=== PATIENT | male | born 1995 | race Caucasian/White ===

== ENCOUNTER 2016-10-25 20:17 | Emergency (ER) | payer OTHER ==
--- NOTE | 2016-10-25 21:52 | ED ORDER SUMMARY ---
..... Patient: TE WEI OrderSheet [facility] VisitID: [id number] [place] [address] 21y, M Registration Date/Time: 10/25/2016 ORDER SHEET Weight: 104.3 kg (stated) Allergies: Sulfa Antibiotics, Other antibiotic pt. does not recall GENERAL ORDERS: CBC w Diff Urgent (21:07 10/25/2016 HBivens A.R.N.P.) (21:13 EHassan R.N.) (21:15 AMcQuoid ER Tech1) CMP Urgent (21:10/25/2016 HBivens A.R.N.P.) (21:13 EHassan R.N.) (21:15 AMcQuoid ER Tech1) UA-Culture if indicated Urgent (21:10/25/2016 HBivens A.R.N.P.) (21:13 EHassan R.N.) (21:15 AMcQuoid ER Tech1) Amylase Urgent (21:10/25/2016 HBivens A.R.N.P.) (21:13 EHassan R.N.) (21:15 AMcQuoid ER Tech1) Lipase Urgent (21:10/25/2016 HBivens A.R.N.P.) (21:13 EHassan R.N.) (21:15 AMcQuoid ER Tech1) MEDICATION ORDERS: K-Dur PO 20 meq (Do not crush or chew, NOW) (21:52 10/25/2016 HBivens A.R.N.P.) (Ack 21:55 SReitz R.N.) (22:07 SReitz R.N.) IV FLUIDS: IV NS : initial bolus 1000 mL (1000 mL/hr), then none - (NOW) (21:07 10/25/2016 HBivens A.R.N.P.) (Ack 21:09 RCollier R.N.) (21:18 EHassan R.N.) Toradol IV 30 mg (NOW) (21:07 10/25/2016 HBivens A.R.N.P.) (Ack 21:09 RCollier R.N.) (21:18 EHassan R.N.) IV Saline Lock (21:07 10/25/2016 HBsharlene A.R.N.P.) (Ack 21:09 Samm R.N.) (21:20 EHassan R.N.) ORDER SHEET NOTES: [Electronically signed by Misti Mark R.N. (22:09 10/25/2016)] [Electronically signed by Sherie SantiagoR.N.PRadha (22:27 10/25/2016)] [Electronically locked/signed by Misti Mark R.N. (22:09 10/25/2016)]
--- NOTE | 2016-10-25 21:52 | ED NURSING NOTES ---
Clinical Report - Nurses [facility] [address] [place] [address] 10/25/2016 20:19 Patient: TE WEI TRIAGE Triage time 20:35. Acuity: LEVEL 3. Chief Complaint: ABDOMINAL PAIN, NAUSEA and DIARRHEA. Alert. No acute distress. SEPSIS SCREEN: Sepsis Screen. Negative (no infection suspected/documented). SANGITA COMA SCORE: [place] Coma Scale: 15- eyes open spontaneously (4); best verbal response- oriented x 4 (5); best motor response- obeys commands (6). --20:41 Misti Mark R.N. 20:35 10/25/16. BP: 136/85. HR: 95. RR: 18. O2 saturation: 100%. Temp: 101.1 F. Pain level now 7/10. --20:41 Misti Mark R.N. Weight: 104.3 kg stated. Height/Length: 71 inches Per Patient. BMI: 32.1. --20:39 Misti Mark R.N. Medications Albuterol Sulfate Inhalation. --20:39 Misti Mark R.N. Advil Oral, as needed. --20:39 Misti Mark R.N. Allergies Sulfa Antibiotics. --20:39 Misti Mark R.N. Other antibiotic pt. does not recall. --20:40 Misti Mark R.N. History Arrived by private vehicle. Historian: patient. Accompanied by father. Primary physician (none). This started yesterday. ( Pt. states he ate at [employer] yesterday and shortly after he started having diarrhea and abd. pain.). 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 PAST MEDICAL HX: Immunizations: up-to-date. SOCIAL HX: Never smoker. No alcohol use or drug use. No recent travel. No infectious disease exposure. No known contact with a sick individual. ABUSE ASSESSMENT: Abuse assessment: The patient was asked "Do you feel safe in your home?" and "Has anyone hurt you or threatened to hurt you?". No report of abuse. SELF HARM ASSESSMENT: A self harm assessment was performed. The patient answered "no" to the question "Are you here because you tried to hurt yourself?" and "Have you recently had thoughts about harming or killing others?". NUTRITIONAL RISK ASSESSMENT: The nutritional risk assessment revealed no deficiencies. FUNCTIONAL ASSESSMENT: Functional assessment: no impairments noted. LEARNING NEEDS ASSESSMENT: The learning needs assessment revealed no barriers. --20:41 Misti Mark R.N. PROBLEMS: Asthma. --20:40 Misti Mark R.N. Migraine Headache. --20:41 Misti Mark R.N. ADDITIONAL SURGERIES: Broken thumbs. RT shoulder injury. --20:40 Misti Mark R.N. Interventions ID band on patient. Ambulatory. --20:41 Misti Mark R.N. PHYSICAL ASSESSMENT Ambulatory to room. GENERAL / NEURO / PSYCH: Alert. Appears in no acute distress. HEENT: Mucous membranes are pink. RESPIRATORY: Respirations not labored. CVS: Capillary refill less than 2 seconds. GI / : Abdomen soft. Abdominal tenderness diffusely. SKIN: Skin is warm and dry. --20:42 Misti Mark R.N. NURSING PROGRESS NOTES Patient gowned. Head of bed elevated. Two patient identifiers checked. Call light placed in reach. Side rails up x 2. Bed placed in lowest position. Brakes of bed on. Patient ready for evaluation- chart flagged. --20:42 Misti Mark R.N. 20:42 10/25/2016 Site #1 started via IV in the left antecubital space with an 20g angiocath, with aseptic technique and good blood return; one attempt. Blood drawn: rainbow set. Labeled in the presence of the patient and sent to the lab. Saline lock flushed with 10 mL saline (accessed by HILLARY Carlisle). --20:42 Misti Mark R.N. ( pt. instructed to leave urine sample. Unable to at this time.). --20:43 Misti Mark R.N. 21:18 10/25/2016 Toradol IVP 30 mg given over 1 minute(s) via site #1. Allergies verified and confirmed 5 rights. IV patency established. IV site checked: no pain, redness, or swelling. IV flushed thoroughly pre- and post-medication administration. IVP given by RN. --21:18 Maylin Brito R.N. 21:18 10/25/2016 Started bag #1 1000 mL IV Fluids IV NS (Saline); at 1000 mL/hr over 1 hour(s) via site #1 via IV pump. Allergies verified and confirmed 5 rights. IV patency established. IV site checked: no pain, redness, or swelling. IV flushed thoroughly pre- and post-medication administration. --21:18 Maylin Brito R.N. 22:00 10/25/2016 K-DUR (Potassium Chloride Ale ER) PO 20 meq given. Allergies verified and confirmed 5 rights. --22: Misti Mark R.N. 22:10/25/2016 IV Fluids IV NS Discontinued: bag #1 infused. Total amount infused: 800 mL. IV patency established. IV site checked: no pain, redness, or swelling. IV flushed thoroughly. --22:07 Misti Mark R.N. DISPOSITION / DISCHARGE 22:10/25/2016 Site #1 removed upon discharge. Catheter intact. Manual pressure and bandaid applied. --22:08 Misti Mark R.N. Departure time: 2206. Condition at departure: stable. No learning barriers present. Discharge instructions provided and reviewed with the patient. Reviewed referral to family practice for followup. Patient verbalized understanding. Written instructions provided in [place]. The patient was discharged home and accompanied by parent. He left the Emergency Department ambulatory and via private vehicle. Parent driving. Medication list reviewed and validated. --22:09 Misti Mark R.N. 22:10/25/16. BP: 132/66. HR: 93. RR: 16. O2 saturation: 99%. Temp: 100.0 F. Pain level now 0/10. --22:09 Misti Mark R.N. Locked/Released at 10/25/2016 22:09 by Misti Mark R.N.
--- NOTE | 2016-10-25 21:52 | ED CLINICAL REPORT ---
Clinical Report - Physicians/Mid Levels [facility] [address] [place] [address] 10/25/2016 20:19 Patient: TE WEI Time Seen: 20:40; upon arrival, initial patient contact, initial documentation, patient care assumed. Arrived- By private vehicle. Historian- patient. HISTORY OF PRESENT ILLNESS Chief Complaint: ABDOMINAL PAIN. This started yesterday and is still present. It was abrupt in onset and has been constant. At its maximum, severity described as moderate. When seen in the E.D., severity described as moderate. Modifying factors. Not worsened by anything. Not relieved by anything. It is described as "pain" and diffuse. No radiation. The patient has had nausea. No loss of appetite or vomiting. He has had mild diarrhea (x3 episodes today). This has occurred several times. It has been watery. No bloody, mucous containing or blood-tinged diarrhea, tenesmus or associated cramps. No additional abdominal pain. No recent travel. Similar symptoms previously: None. Recent medical care: Not recently seen/assessed. REVIEW OF SYSTEMS No constipation, black stools, hematemesis, difficulty with urination or pain with urination. No urinary frequency, bloody stools, fever, chest pain or difficulty breathing. All systems otherwise negative, except as recorded above. PAST HISTORY See nurses notes. PROBLEMS: Asthma. --20:40 Misti Mark R.N. ADDITIONAL SURGERIES: Broken thumbs. RT shoulder injury. --20:40 Misti Mark R.N. SOCIAL HISTORY Never smoker. No alcohol use or drug use. No recent travel. Is a local resident. FAMILY HISTORY Negative. ADDITIONAL NOTES The nursing notes have been reviewed with agreement regarding the chief complaint, HPI, ROS, PMH and patient medications and allergies. PHYSICAL EXAM Vital Signs: 10/25/2016 20:35 BP: 136/85. HR: 95. RR: 18. O2 saturation: 100%. Temp: 101.1 F. Have been reviewed as abnormal and appear to be correct. Blood pressure normal. Heart rate normal. Respiratory rate normal. Febrile. Oxygen saturation normal. Appearance: Alert. Oriented X3. No acute distress. Eyes: Pupils equal, round and reactive to light. Eyes normal inspection. Neck: Normal inspection. Neck supple. CVS: Normal heart rate and rhythm. Heart sounds normal. Pulses normal. Respiratory: No respiratory distress. Breath sounds normal. Chest nontender. Abdomen: Soft and nontender. Bowel sounds normal. No organomegaly. No mass. Back: Normal inspection. Skin: Skin warm and dry. Normal skin color. No rash. Normal skin turgor. Extremities: Extremities exhibit normal ROM. No lower extremity edema. Neuro: Oriented X 3. No motor deficit. No sensory deficit. LABS, X-RAYS, AND EKG Laboratory Tests: UA-Culture if indicated: (TORIBIO: 10/25/2016 21:16) ( [facility] [place] 10/25/2016 21:29) Final results Test Result Flag Units (Reference) URINE COLOR YELLOW URINE APPEARANCE CLEAR URINE GLUCOSE NEGATIVE (NEGATIVE) URINE BILIRUBIN NEGATIVE (NEGATIVE) URINE KETONE NEGATIVE (NEGATIVE) URINE SPECIFIC GRAVITY 1.025 (1.010-1.030) URINE PH 6.0 (5.0-8.0) URINE PROTEIN NEGATIVE (NEGATIVE) URINE UROBILINOGEN 0.2 EU/dL (0.2-1.0) URINE NITRITE NEGATIVE (NEGATIVE) URINE BLOOD NEGATIVE (NEGATIVE) URINE LEUK ESTERASE NEGATIVE (NEGATIVE) URINE RBC NONE SEEN rbc/hpf (0-1) URINE WBC RARE wbc/hpf (0-1) URINE EPITHELIAL CELLS 0-1 EPI/hpf (0-5) URINE BACTERIA NONE SEEN (NONE SEEN) URINE COMMENT CULT NOT INDICATED URINE CULTURES ARE SET-UP BASED ON THE FOLLOWING CRITERIA:POSITIVE NITRITEPOSITIVE LEUKOCYTE ESTERASEGREATER THAN 10 WHITE BLOOD CELLSMODERATE (2+) OR GREATER BACTERIA CBC w Diff: (TORIBIO: 10/25/2016 20:45) ( [facility] [place] 10/25/2016 21:19) Final results Test Result Flag Units (Reference) WHITE BLOOD COUNT 10.9 K/uL (4.5-11.5) RED BLOOD COUNT 5.32 M/uL (4.50-5.90) HEMOGLOBIN 16.2 gm/dL (13.5-17.5) HEMATOCRIT 47.4 % (41.0-53.0) MEAN CELL VOLUME 89 fL (80-100) MEAN CORPUSCULAR HGB 30 pg (26-34) MEAN CORPUSCULAR HGB CONC 34 g/dL (31-37) RED CELL DISTRIBUTION WIDTH 12.6 % (11.6-14.8) PLATELET COUNT 227 K/uL (150-400) NEUTROPHIL % 72.1 % (50-75) LYMPH % 17.6 L % (25-40) MONO % 8.8 % (3-14) EOSINOPHIL % 1.3 % (0-4) BASOPHIL % 0.2 % (0-2) CMP: (TORIBIO: 10/25/2016 20:45) ( MsgRcvd 10/25/2016 21:28) Final results Test Result Flag Units (Reference) GLUCOSE 96 mg/dL (70-110) BUN 16 mg/dL (7-18) CREATININE 1.0 mg/dL (0.6-1.3) Estimated GFR >60 mL/min Estimated GFR- >60 mL/min Note: Persistent reduction over 3 months in eGFR<60 mL/min/1.73 m2 defines CKD. Patients with eGFR values>=60 mL/min/1.73 m2 may also have CKD if evidence ofpersistent proteinuria. Additional information may be foundat www.kidney.org. SODIUM 137 mmol/L (136-145) POTASSIUM 3.4 L mmol/L (3.5-5.1) CHLORIDE 100 mmol/L (98-107) CARBON DIOXIDE 27 mmol/L (21-32) CALCIUM 8.8 mg/dL (8.5-10.1) TOTAL PROTEIN 8.0 g/dL (6.4-8.2) ALBUMIN 3.9 g/dL (3.3-5.0) BILIRUBIN, TOTAL 1.4 H mg/dL (0.0-1.0) ALKALINE PHOSPHATASE 80 U/L (46-116) AST (SGOT) 27 U/L (15-37) ALT (SGPT) 63 U/L (12-78) LIPASE 163 U/L (73-393) AMYLASE 61 U/L (25-115) . PROGRESS AND PROCEDURES Patient counseled in person regarding the patient's stable condition, test results and diagnosis. 21:46. Differential Diagnosis: I considered infectious etiology, inflammatory etiology, hyperkalemia, small bowel obstruction, colon cancer, irritable bowel syndrome and ischemic colitis as a possible cause of diarrhea in this patient. This is a partial list of diagnoses considered. Above considerations are based on history, physical exam and laboratory data. Differential diagnosis was discussed with patient. Disposition: Discharged home in good and improved condition (21:52). Condition: good and stable. CLINICAL IMPRESSION Diarrhea INSTRUCTIONS Drink plenty of fluids for the next 24 hours until better. Warnings: GENERAL WARNINGS: Return or contact your physician immediately if your condition worsens or changes unexpectedly, if not improving as expected, or if other problems arise. SPECIFICALLY, return if you develop pain in the abdomen, fever, the inability to keep fluids down, blood in vomitus, blood in diarrhea, fainting or lightheadedness. Follow-up: Follow up with your doctor in about two days even if well. Call for an appointment. Summary of care provided to patient. Understanding of the discharge instructions verbalized by patient. (Electronically signed by Sherie Santiago A.R.N.P. 10/25/2016 22:27)
--- NOTE | 2016-10-25 21:52 | ED ORDER SUMMARY ---
..... Patient: TE WEI OrderSheet [facility] VisitID: [id number] [place] [address] 21y, M Registration Date/Time: 10/25/2016 ORDER SHEET Weight: 104.3 kg (stated) Allergies: Sulfa Antibiotics, Other antibiotic pt. does not recall GENERAL ORDERS: CBC w Diff Urgent (21:07 10/25/2016 HBivens A.R.N.P.) (21:13 EHassan R.N.) (21:15 AMcQuoid ER Tech1) CMP Urgent (21:10/25/2016 HBivens A.R.N.P.) (21:13 EHassan R.N.) (21:15 AMcQuoid ER Tech1) UA-Culture if indicated Urgent (21:10/25/2016 HBivens A.R.N.P.) (21:13 EHassan R.N.) (21:15 AMcQuoid ER Tech1) Amylase Urgent (21:10/25/2016 HBivens A.R.N.P.) (21:13 EHassan R.N.) (21:15 AMcQuoid ER Tech1) Lipase Urgent (21:10/25/2016 HBivens A.R.N.P.) (21:13 EHassan R.N.) (21:15 AMcQuoid ER Tech1) MEDICATION ORDERS: K-Dur PO 20 meq (Do not crush or chew, NOW) (21:52 10/25/2016 HBivens A.R.N.P.) (Ack 21:55 SReitz R.N.) (22:07 SReitz R.N.) IV FLUIDS: IV NS : initial bolus 1000 mL (1000 mL/hr), then none - (NOW) (21:07 10/25/2016 HBivens A.R.N.P.) (Ack 21:09 RCollier R.N.) (21:18 EHassan R.N.) Toradol IV 30 mg (NOW) (21:07 10/25/2016 HBivens A.R.N.P.) (Ack 21:09 RCollier R.N.) (21:18 EHassan R.N.) IV Saline Lock (21:07 10/25/2016 HBsharlene A.R.N.P.) (Ack 21:09 Samm R.N.) (21:20 EHassan R.N.) ORDER SHEET NOTES: [Electronically signed by Misti Mark R.N. (22:09 10/25/2016)] [Electronically signed by Sherie SantiagoR.N.PRadha (22:27 10/25/2016)] [Electronically locked/signed by Misti Mark R.N. (22:09 10/25/2016)]
--- NOTE | 2016-10-25 21:52 | ED NURSING NOTES ---
Clinical Report - Nurses [facility] [address] [place] [address] 10/25/2016 20:19 Patient: TE WEI TRIAGE Triage time 20:35. Acuity: LEVEL 3. Chief Complaint: ABDOMINAL PAIN, NAUSEA and DIARRHEA. Alert. No acute distress. SEPSIS SCREEN: Sepsis Screen. Negative (no infection suspected/documented). SANGITA COMA SCORE: [place] Coma Scale: 15- eyes open spontaneously (4); best verbal response- oriented x 4 (5); best motor response- obeys commands (6). --20:41 Misti Mark R.N. 20:35 10/25/16. BP: 136/85. HR: 95. RR: 18. O2 saturation: 100%. Temp: 101.1 F. Pain level now 7/10. --20:41 Misti Mark R.N. Weight: 104.3 kg stated. Height/Length: 71 inches Per Patient. BMI: 32.1. --20:39 Misti Mark R.N. Medications Albuterol Sulfate Inhalation. --20:39 Misti Mark R.N. Advil Oral, as needed. --20:39 Misti Mark R.N. Allergies Sulfa Antibiotics. --20:39 Misti Mark R.N. Other antibiotic pt. does not recall. --20:40 Misti Mark R.N. History Arrived by private vehicle. Historian: patient. Accompanied by father. Primary physician (none). This started yesterday. ( Pt. states he ate at [employer] yesterday and shortly after he started having diarrhea and abd. pain.). 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 PAST MEDICAL HX: Immunizations: up-to-date. SOCIAL HX: Never smoker. No alcohol use or drug use. No recent travel. No infectious disease exposure. No known contact with a sick individual. ABUSE ASSESSMENT: Abuse assessment: The patient was asked "Do you feel safe in your home?" and "Has anyone hurt you or threatened to hurt you?". No report of abuse. SELF HARM ASSESSMENT: A self harm assessment was performed. The patient answered "no" to the question "Are you here because you tried to hurt yourself?" and "Have you recently had thoughts about harming or killing others?". NUTRITIONAL RISK ASSESSMENT: The nutritional risk assessment revealed no deficiencies. FUNCTIONAL ASSESSMENT: Functional assessment: no impairments noted. LEARNING NEEDS ASSESSMENT: The learning needs assessment revealed no barriers. --20:41 Misti Mark R.N. PROBLEMS: Asthma. --20:40 Misti Mark R.N. Migraine Headache. --20:41 Misti Mark R.N. ADDITIONAL SURGERIES: Broken thumbs. RT shoulder injury. --20:40 Misti Mark R.N. Interventions ID band on patient. Ambulatory. --20:41 Misti Mark R.N. PHYSICAL ASSESSMENT Ambulatory to room. GENERAL / NEURO / PSYCH: Alert. Appears in no acute distress. HEENT: Mucous membranes are pink. RESPIRATORY: Respirations not labored. CVS: Capillary refill less than 2 seconds. GI / : Abdomen soft. Abdominal tenderness diffusely. SKIN: Skin is warm and dry. --20:42 Misti Mark R.N. NURSING PROGRESS NOTES Patient gowned. Head of bed elevated. Two patient identifiers checked. Call light placed in reach. Side rails up x 2. Bed placed in lowest position. Brakes of bed on. Patient ready for evaluation- chart flagged. --20:42 Misti Mark R.N. 20:42 10/25/2016 Site #1 started via IV in the left antecubital space with an 20g angiocath, with aseptic technique and good blood return; one attempt. Blood drawn: rainbow set. Labeled in the presence of the patient and sent to the lab. Saline lock flushed with 10 mL saline (accessed by HILLARY Carlisle). --20:42 Misti Mark R.N. ( pt. instructed to leave urine sample. Unable to at this time.). --20:43 Misti Mark R.N. 21:18 10/25/2016 Toradol IVP 30 mg given over 1 minute(s) via site #1. Allergies verified and confirmed 5 rights. IV patency established. IV site checked: no pain, redness, or swelling. IV flushed thoroughly pre- and post-medication administration. IVP given by RN. --21:18 Maylin Brito R.N. 21:18 10/25/2016 Started bag #1 1000 mL IV Fluids IV NS (Saline); at 1000 mL/hr over 1 hour(s) via site #1 via IV pump. Allergies verified and confirmed 5 rights. IV patency established. IV site checked: no pain, redness, or swelling. IV flushed thoroughly pre- and post-medication administration. --21:18 Maylin Brito R.N. 22:00 10/25/2016 K-DUR (Potassium Chloride Ale ER) PO 20 meq given. Allergies verified and confirmed 5 rights. --22: Misti Mark R.N. 22:10/25/2016 IV Fluids IV NS Discontinued: bag #1 infused. Total amount infused: 800 mL. IV patency established. IV site checked: no pain, redness, or swelling. IV flushed thoroughly. --22:07 Misti Mark R.N. DISPOSITION / DISCHARGE 22:10/25/2016 Site #1 removed upon discharge. Catheter intact. Manual pressure and bandaid applied. --22:08 Misti Mark R.N. Departure time: 2206. Condition at departure: stable. No learning barriers present. Discharge instructions provided and reviewed with the patient. Reviewed referral to family practice for followup. Patient verbalized understanding. Written instructions provided in [place]. The patient was discharged home and accompanied by parent. He left the Emergency Department ambulatory and via private vehicle. Parent driving. Medication list reviewed and validated. --22:09 Misti Mark R.N. 22:10/25/16. BP: 132/66. HR: 93. RR: 16. O2 saturation: 99%. Temp: 100.0 F. Pain level now 0/10. --22:09 Misti Mark R.N. Locked/Released at 10/25/2016 22:09 by Misti Mark R.N.
--- NOTE | 2016-10-25 22:27 | ED DISCHARGE INSTRUCTIONS ---
Patient: TE WEI General Instructions [facility] VisitID: [id number] [place] [address] 21y, M Registration Date/Time: 10/25/2016 Diarrhea INSTRUCTIONS Drink plenty of fluids for the next 24 hours until better. Warnings: GENERAL WARNINGS: Return or contact your physician immediately if your condition worsens or changes unexpectedly, if not improving as expected, or if other problems arise. SPECIFICALLY, return if you develop pain in the abdomen, fever, the inability to keep fluids down, blood in vomitus, blood in diarrhea, fainting or lightheadedness. Follow-up: Follow up with your doctor in about two days even if well. Call for an appointment. Summary of care provided to patient. Understanding of the discharge instructions verbalized by patient. ADDITIONAL INFORMATION Diarrhea, Uncertain Cause (Adult, Report Pending) Diarrhea has several possible causes. Commonstomach fluis caused by a virus. Food poisoning, bacteria or parasites are other causes for diarrhea. Only diarrhea caused by bacteria or parasites requires treatment with an antibiotic. Diarrhea from a virus or food poisoning improves with simple home treatment. A stool sample is needed to make the diagnosis of an infection with bacteria or parasites. Up to three stool specimens may be required to diagnose This may take up to two days to get the result. It may be necessary to wait until the stool test is complete to make the diagnosis and select the best antibiotic to prescribe. Home Care: If symptoms are severe, rest at home for the next 24 hours or until you are feeling better. You may use acetaminophen (Tylenol) or ibuprofen (Motrin, Advil) to control fever, unless another medicine was prescribed. [NOTE: If you have chronic liver or kidney disease or ever had a stomach ulcer or GI bleeding, talk with your doctor before using these medicines.] (Aspirin should never be used in anyone under 18 years of age who is ill with a fever. It may cause severe liver damage.) Avoid tobacco, caffeine and alcohol, which may worsen your symptoms. If anti-diarrhea medicine was prescribed, take this only as directed. Sometimes anti-diarrhea medicine can make your condition worse if the cause is an infectious diarrhea. Therefore, anti-diarrhea medicine should not be taken for this condition unless advised by your doctor. During The First 12-24 Hours follow the diet below: BEVERAGES: Sport drinks like Gatorade, soft drinks without caffeine; roberto carlos dionicio, mineral water (plain or flavored), decaffeinated tea and coffee. SOUPS: Clear broth, consomm and bouillon DESSERTS: Plain gelatin (Jell-O), popsicles and fruit juice bars. During The Next 24 Hours you may add the following to the above: Hot cereal, plain toast, bread, rolls, crackers Plain noodles, rice, mashed potatoes, chicken noodle or rice soup Unsweetened canned fruit (avoid pineapple), bananas Limit fat intake to less than 15 grams per day by avoiding margarine, butter, oils, mayonnaise, sauces, gravies, fried foods, peanut butter, meat, poultry and fish. Limit fiber; avoid raw or cooked vegetables, fresh fruits (except bananas) and bran cereals. Limit caffeine and chocolate. No spices or seasonings except salt. During The Next 24 Hours Gradually resume a normal diet, as you feel better and your symptoms lessen. Follow Up with your doctor or as advised if you are not improving over the next two days. If you were asked to bring a specimen from home, bring the sample on the day of collection. You may call in 2 days (or as directed) for the results. Get Prompt Medical Attention if any of the following occur: Increasing abdominal pain or constant lower right abdominal pain Continued vomiting (unable to keep liquids down) Frequent diarrhea (more than 5 times a day) Blood in vomit or stool (black or red color) Reduced oral intake Dark urine, reduced urine output Weakness, dizziness, fainting Drowsiness, confusion, stiff neck or seizure Fever of 100.4F (38C) oral or higher, not better with fever medication New rash You have been given the following additional information: Diarrhea, Unk Cause (Adult) Report Pendg (Electronically signed by Sherie Santiago A.R.N.P. 10/25/2016 22:27)
--- NOTE | 2016-10-25 22:27 | ED MED RECONCILIATION SUMMARY ---
Patient: TE WEI Medication Reconciliation Report [facility] VisitID: [id number] [address] [place] [address] 21y, M Registration Date/Time: 10/25/2016 Weight: 104.3 kg Height/Length: 71 in. BMI: 32.1 ALLERGIES: Other antibiotic pt. does not recall, Sulfa Antibiotics The patient's Home Medications are listed below: THE FOLLOWING MEDICATIONS NEED TO BE RECONCILED: Advil Oral Albuterol Sulfate Inhalation The source(s) of the original Home Medication information: Not obtained. The following Medications were given to the patient in the Emergency Department: Toradol [IVP] IVP 30 mg, administered: 10/25/2016 9:18:00 PM IV NS IV Fluids bolus 0, then 1000 mL/hr, administered: 10/25/2016 9:18:00 PM K-DUR [PO] PO 20 meq, administered: 10/25/2016 10:00:00 PM The following Medications were prescribed to the patient: None.
--- NOTE | 2016-10-25 22:27 | ED MED RECONCILIATION SUMMARY ---
Patient: TE WEI Medication Reconciliation Report [facility] VisitID: [id number] [address] [place] [address] 21y, M Registration Date/Time: 10/25/2016 Weight: 104.3 kg Height/Length: 71 in. BMI: 32.1 ALLERGIES: Other antibiotic pt. does not recall, Sulfa Antibiotics The patient's Home Medications are listed below: THE FOLLOWING MEDICATIONS NEED TO BE RECONCILED: Advil Oral Albuterol Sulfate Inhalation The source(s) of the original Home Medication information: Not obtained. The following Medications were given to the patient in the Emergency Department: Toradol [IVP] IVP 30 mg, administered: 10/25/2016 9:18:00 PM IV NS IV Fluids bolus 0, then 1000 mL/hr, administered: 10/25/2016 9:18:00 PM K-DUR [PO] PO 20 meq, administered: 10/25/2016 10:00:00 PM The following Medications were prescribed to the patient: None.
--- NOTE | 2016-10-25 22:27 | ED MAR SUMMARY ---
..... Medication Administration Record [facility] [address] [place] [address] Patient: TE WEI Visit ID: [id number] 21y, M Weight: 104.3 kg Height/Length: 71 in BMI: 32.1 ALLERGIES: Sulfa Antibiotics, Other antibiotic pt. does not recall Start 21:18 10/25/2016 Maylin Brito R.N., Stop 22:07 10/25/2016 Misti Mark R.N. Medication Administered: IV NS (SALINE), Dose: IV Fluids over 1 hour(s), Rate: 1000 mL/hr, Dispensed: 1000 mL bag, Site: #1 left AC. Medication Ordered: IV NS : initial bolus 1000 mL (1000 mL/hr), then none - (NOW). Given 21:18 10/25/2016 Maylin Brito R.N. Medication Administered: TORADOL [IVP], Dose: 30 mg IVP over 1 minute(s), Site: #1 left AC. Medication Ordered: Toradol IV 30 mg (NOW). Given 22:00 10/25/2016 Misti Mark R.N. Medication Administered: K-DUR [PO] (POTASSIUM CHLORIDE TARIK ER), Dose: 20 meq PO. Medication Ordered: K-Dur PO 20 meq (Do not crush or chew, NOW).
--- NOTE | 2016-10-25 22:27 | ED MAR SUMMARY ---
..... Medication Administration Record [facility] [address] [place] [address] Patient: TE WEI Visit ID: [id number] 21y, M Weight: 104.3 kg Height/Length: 71 in BMI: 32.1 ALLERGIES: Sulfa Antibiotics, Other antibiotic pt. does not recall Start 21:18 10/25/2016 Maylin Brito R.N., Stop 22:07 10/25/2016 Misti Mark R.N. Medication Administered: IV NS (SALINE), Dose: IV Fluids over 1 hour(s), Rate: 1000 mL/hr, Dispensed: 1000 mL bag, Site: #1 left AC. Medication Ordered: IV NS : initial bolus 1000 mL (1000 mL/hr), then none - (NOW). Given 21:18 10/25/2016 Maylin Brito R.N. Medication Administered: TORADOL [IVP], Dose: 30 mg IVP over 1 minute(s), Site: #1 left AC. Medication Ordered: Toradol IV 30 mg (NOW). Given 22:00 10/25/2016 Misti Mark R.N. Medication Administered: K-DUR [PO] (POTASSIUM CHLORIDE TARIK ER), Dose: 20 meq PO. Medication Ordered: K-Dur PO 20 meq (Do not crush or chew, NOW).
== END 2016-10-25 22:07 | disposition home or self-care (01) ==
LOC: ED SRH 20:17
DX: R19.7 Diarrhea, unspecified (principal); J45.909 Unspecified asthma, uncomplicated; Z79.899 Other long term (current) drug therapy; Z88.1 Allergy status to other antibiotic agents; Z88.2 Allergy status to sulfonamides
CPT/HCPCS: 90004; 90100; 92235; 92530; 95059

== ENCOUNTER 2017-03-11 19:43 | Emergency (ER) | payer OTHER ==
--- NOTE | 2017-03-11 20:31 | ED NURSING NOTES ---
Clinical Report - Nurses [facility] [address] [place] [address] 03/11/2017 19:43 Patient: TE WEI TRIAGE Triage time 19:47. Acuity: LEVEL 3. Alert. No acute distress. SEPSIS SCREEN: Sepsis Screen: negative. Negative (no infection suspected/documented). --19:53 Maria Alejandra Bill R.N. 19:47 03/11/17. BP: 151/88. HR: 110. RR: 24. O2 saturation: 91% on room air. Temp: 99.1 F. Pain level now: 09/06. Additional comments: 2 l of 02. --19:53 Maria Alejandra Bill R.N. 19:47 03/11/17. BP: 151/88. HR: 110. RR: 24. O2 saturation: 91% on room air. Temp: 99.1 F. Pain level now: 09/06. Additional comments: 2 l of 02. --19:53 Maria Alejandra Bill R.N. Chief Complaint: SHORTNESS OF BREATH, DIFFICULTY BREATHING and "ASTHMA ATTACK". 19:47. --22:00 Maria Alejandra Bill R.N. Weight: 108.8 kg stated. Height/Length: 72 inches Per Patient. BMI: 32.6. --19:52 Maria Alejandra Bill R.N. Medications Albuterol Sulfate Inhalation. --19:50 Maria Alejandra Bill R.N. Allergies Other antibiotic pt. does not recall. Sulfa Antibiotics. --19:50 Maria Alejandra Bill R.N. History Arrived by private vehicle, and accompanied by family. This is a recurrent problem. (2 weeks, with sinus infection.). He has had a nonproductive cough. 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 PAST MEDICAL HX: Asthma. SURGERY HX: ( ear tubes). SOCIAL HX: Never smoker. No alcohol use or drug use. FALL RISK ASSESSMENT: Fall risk assessment completed. No fall risk identified. NUTRITIONAL RISK ASSESSMENT: The nutritional risk assessment revealed no deficiencies. FUNCTIONAL ASSESSMENT: Functional assessment: no impairments noted. LEARNING NEEDS ASSESSMENT: The learning needs assessment revealed no barriers. SKIN INTEGRITY ASSESSMENT: Skin integrity risk assessment completed. No skin integrity risk identified. --19:53 Maria Alejandra Bill R.N. Interventions ID band on patient. To room. --19:53 Maria Alejandra Bill R.N. PHYSICAL ASSESSMENT Ambulatory to room. Patient gowned. GENERAL / NEURO / PSYCH: Alert. Oriented X 4. Appears anxious. HEENT: Mucous membranes are pink. RESPIRATORY: Moderate respiratory distress. The patient can speak a few words at a time. Decreased breath sounds. CVS: Capillary refill less than 2 seconds. GI / : Abdomen nontender. SKIN: Skin is warm and dry. Normal skin turgor. --19:54 Maria Alejandra Bill R.N. NURSING PROGRESS NOTES Patient gowned. Head of bed elevated. Two patient identifiers checked. Call light placed in reach. Side rails up x 2. Bed placed in lowest position. Brakes of bed on. Patient ready for evaluation. --19:55 Maria Alejandra Bill R.N. ( Rt at the bedside.). --19:55 Maria Alejandra Bill R.N. 19:56 03/11/2017 Site #1 started prior to arrival by EMS via IV in the right antecubital space with an 20g angiocath, with aseptic technique and good blood return; one attempt. Blood drawn: rainbow set. Labeled in the presence of the patient and sent to the lab. Saline lock flushed with 10 mL saline. --19:56 Maria Alejandra Bill R.N. 20:00 03/11/17. Patient ID band checked for patient name and birthdate: patient confirmed. Blood samples drawn from the right antecubital space peripheral IV site with Vacutainer by nurse ; labeled in presence of the patient and sent to lab: rainbow set. Additional blood sent to lab. Line flushed with 10 mL normal saline post blood draw. --20:13 Juli Bhagat 20:15 03/11/17. BP: 132/88. HR: 91. RR: 22. O2 saturation: 96% on nasal cannula at 2 liters/minute. --20:17 Maria Alejandra Bill R.N. DISPOSITION / DISCHARGE 20:45. Condition at departure: improved. No learning barriers present. Discharge instructions provided and reviewed with the patient. Reviewed medication(s) side effects, precautions, dosing and course information. Patient verbalized understanding. Written instructions provided in Andorran. The patient was discharged home and accompanied by parent. He left the Emergency Department ambulatory and via private vehicle. Parent driving. Medication list reviewed and validated. --22:00 Maria Alejandra Bill R.N. 20:15 03/11/17. BP: 132/88. HR: 91. RR: 22. O2 saturation: 96% on nasal cannula at 2 liters/minute. 19:47 03/11/17. BP: 151/88. HR: 110. RR: 24. O2 saturation: 91% on room air. Temp: 99.1 F. Pain level now: 09/06. Additional comments: 2 l of 02. --22:00 Maria Alejandra Bill R.N. Locked/Released at 03/11/2017 22:01 by Maria Alejandra Bill R.N.
--- NOTE | 2017-03-11 20:31 | ED NURSING NOTES ---
Clinical Report - Nurses [facility] [address] [place] [address] 03/11/2017 19:43 Patient: TE WEI TRIAGE Triage time 19:47. Acuity: LEVEL 3. Alert. No acute distress. SEPSIS SCREEN: Sepsis Screen: negative. Negative (no infection suspected/documented). --19:53 Maria Alejandra Bill R.N. 19:47 03/11/17. BP: 151/88. HR: 110. RR: 24. O2 saturation: 91% on room air. Temp: 99.1 F. Pain level now: 09/06. Additional comments: 2 l of 02. --19:53 Maria Alejandra Bill R.N. 19:47 03/11/17. BP: 151/88. HR: 110. RR: 24. O2 saturation: 91% on room air. Temp: 99.1 F. Pain level now: 09/06. Additional comments: 2 l of 02. --19:53 Maria Alejandra Bill R.N. Chief Complaint: SHORTNESS OF BREATH, DIFFICULTY BREATHING and "ASTHMA ATTACK". 19:47. --22:00 Maria Alejandra Bill R.N. Weight: 108.8 kg stated. Height/Length: 72 inches Per Patient. BMI: 32.6. --19:52 Maria Alejandra Bill R.N. Medications Albuterol Sulfate Inhalation. --19:50 Maria Alejandra Bill R.N. Allergies Other antibiotic pt. does not recall. Sulfa Antibiotics. --19:50 Maria Alejandra Bill R.N. History Arrived by private vehicle, and accompanied by family. This is a recurrent problem. (2 weeks, with sinus infection.). He has had a nonproductive cough. 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 PAST MEDICAL HX: Asthma. SURGERY HX: ( ear tubes). SOCIAL HX: Never smoker. No alcohol use or drug use. FALL RISK ASSESSMENT: Fall risk assessment completed. No fall risk identified. NUTRITIONAL RISK ASSESSMENT: The nutritional risk assessment revealed no deficiencies. FUNCTIONAL ASSESSMENT: Functional assessment: no impairments noted. LEARNING NEEDS ASSESSMENT: The learning needs assessment revealed no barriers. SKIN INTEGRITY ASSESSMENT: Skin integrity risk assessment completed. No skin integrity risk identified. --19:53 Maria Alejandra Bill R.N. Interventions ID band on patient. To room. --19:53 Maria Alejandra Bill R.N. PHYSICAL ASSESSMENT Ambulatory to room. Patient gowned. GENERAL / NEURO / PSYCH: Alert. Oriented X 4. Appears anxious. HEENT: Mucous membranes are pink. RESPIRATORY: Moderate respiratory distress. The patient can speak a few words at a time. Decreased breath sounds. CVS: Capillary refill less than 2 seconds. GI / : Abdomen nontender. SKIN: Skin is warm and dry. Normal skin turgor. --19:54 Maria Alejandra Bill R.N. NURSING PROGRESS NOTES Patient gowned. Head of bed elevated. Two patient identifiers checked. Call light placed in reach. Side rails up x 2. Bed placed in lowest position. Brakes of bed on. Patient ready for evaluation. --19:55 Maria Alejandra Bill R.N. ( Rt at the bedside.). --19:55 Maria Alejandra Bill R.N. 19:56 03/11/2017 Site #1 started prior to arrival by EMS via IV in the right antecubital space with an 20g angiocath, with aseptic technique and good blood return; one attempt. Blood drawn: rainbow set. Labeled in the presence of the patient and sent to the lab. Saline lock flushed with 10 mL saline. --19:56 Maria Alejandra Bill R.N. 20:00 03/11/17. Patient ID band checked for patient name and birthdate: patient confirmed. Blood samples drawn from the right antecubital space peripheral IV site with Vacutainer by nurse ; labeled in presence of the patient and sent to lab: rainbow set. Additional blood sent to lab. Line flushed with 10 mL normal saline post blood draw. --20:13 Juli Bhagat 20:15 03/11/17. BP: 132/88. HR: 91. RR: 22. O2 saturation: 96% on nasal cannula at 2 liters/minute. --20:17 Maria Alejandra Bill R.N. DISPOSITION / DISCHARGE 20:45. Condition at departure: improved. No learning barriers present. Discharge instructions provided and reviewed with the patient. Reviewed medication(s) side effects, precautions, dosing and course information. Patient verbalized understanding. Written instructions provided in Mongolian. The patient was discharged home and accompanied by parent. He left the Emergency Department ambulatory and via private vehicle. Parent driving. Medication list reviewed and validated. --22:00 Maria Alejandra Bill R.N. 20:15 03/11/17. BP: 132/88. HR: 91. RR: 22. O2 saturation: 96% on nasal cannula at 2 liters/minute. 19:47 03/11/17. BP: 151/88. HR: 110. RR: 24. O2 saturation: 91% on room air. Temp: 99.1 F. Pain level now: 09/06. Additional comments: 2 l of 02. --22:00 Maria Alejandra Bill R.N. Locked/Released at 03/11/2017 22:01 by Maria Alejandra Bill R.N.
--- NOTE | 2017-03-11 20:31 | ED CLINICAL REPORT ---
Clinical Report - Physicians/Mid Levels [facility] [address] [place] [address] 03/11/2017 19:43 Patient: TE WEI Time Seen: 19:48. Arrived- By private vehicle. Historian- patient. HISTORY OF PRESENT ILLNESS Chief Complaint: DYSPNEA and HISTORY OF ASTHMA. This started several days ago and is still present and now worse. It was gradual in onset and has been constant and waxing/waning. The dyspnea is described as severe. The patient has had a cough. No chest pain or discomfort. Asthma triggers: infections (he is currently being treated for a sinus infection that he has had for the past 2 weeks). Takes asthma medications. Similar symptoms previously: Several times. REVIEW OF SYSTEMS No chills, fever, sweats, calf pain or chest pain. No pedal edema, palpitations, abdominal pain, constipation or diarrhea. No nausea or vomiting. He has had nasal congestion and sinus pain. All systems otherwise negative, except as recorded above. PAST HISTORY Medications: Albuterol Sulfate Inhalation. Allergies: Other antibiotic pt. does not recall. Sulfa Antibiotics. SOCIAL HISTORY Never smoker. No alcohol use or drug use. FAMILY HISTORY Denies family medical history. PHYSICAL EXAM Appearance: Alert. Eyes: Pupils equal, round and reactive to light. ENT: Pharynx normal. Neck: Normal inspection. Neck supple. CVS: Normal heart rate and rhythm. Heart sounds normal. Respiratory: Prolonged expirations. Decreased air movement. Wheezing present. No stridor, rales or rhonchi. Abdomen: Soft and nontender. No organomegaly. Back: Normal inspection. Skin: Skin warm and dry. Normal skin color. No rash. Normal skin turgor. Extremities: Extremities exhibit normal ROM. No calf tenderness. No lower extremity edema. PROGRESS AND PROCEDURES Course of Care: Symptoms better. Vital signs have been reviewed. Physical exam findings are improved. Patient/family counseled. Old medical records reviewed. Disposition: Discharged. Condition: stable. CLINICAL IMPRESSION Asthma with an acute exacerbation. INSTRUCTIONS Do not work tomorrow. Avoid tobacco smoke. Warnings: Further evaluation is necessary. GENERAL WARNINGS: Return or contact your physician immediately if your condition worsens or changes unexpectedly, if not improving as expected, or if other problems arise. Your Current Medications: CONTINUE TAKING THE FOLLOWING MEDICATIONS: Albuterol Sulfate Inhalation. Prescription Medications: Prednisone 20 mg: take 3 orally every day for 5 days. Dispense fifteen (15). No refills. Follow-up: Follow up with your doctor in five days. Call for an appointment. Understanding of the discharge instructions verbalized by patient and parent. (Electronically signed by Luigi Schulte MD 03/15/2017 20:59)
--- NOTE | 2017-03-15 20:59 | ED DISCHARGE INSTRUCTIONS ---
Patient: TE WEI General Instructions [facility] VisitID: [id number] [place] [address] 21y, M Registration Date/Time: 03/11/2017 Asthma with an acute exacerbation. INSTRUCTIONS Do not work tomorrow. Avoid tobacco smoke. Warnings: Further evaluation is necessary. GENERAL WARNINGS: Return or contact your physician immediately if your condition worsens or changes unexpectedly, if not improving as expected, or if other problems arise. Your Current Medications: CONTINUE TAKING THE FOLLOWING MEDICATIONS: Albuterol Sulfate Inhalation. Prescription Medications: Prednisone 20 mg: take 3 orally every day for 5 days. Dispense fifteen (15). No refills. Follow-up: Follow up with your doctor in five days. Call for an appointment. Understanding of the discharge instructions verbalized by patient and parent. ADDITIONAL INFORMATION Asthma [Adult] Asthma is a disease where the small air passages within the lung go into spasm and restrict the flow of air. Inflammation and swelling of the airways cause further restriction. During an acute asthma attack, these factors cause difficulty breathing, wheezing, cough and chest tightness. An asthma attack can be triggered by many things. Common triggers include the common cold, bronchitis, pneumonia, irritants such as smoke or pullutants in the air, emotional upset and heavy exercise. Inmany adults with asthma, allergies todust, mold, pollen and animal dander can cause an asthma attack. Skipping doses of daily asthma medicine can also bring on an asthma attack. Asthma can be controlled with proper medicines and decreased exposure to known allergens. Home Care: Take prescribed medicine exactly at the times advised. If you have a hand-held inhaler or aerosol breathing medicine, do not use it more than once every four hours, unless told to do so. (If you need this medicine more than every four hours, you may need to return to the Emergency Room.) If prescribed an antibiotic or prednisone, take all of the medicine even if you are feeling better after a few days. Do not smoke. Avoid being exposed to the smoke of others. Some persons with asthma have worsening of their symptoms when they take aspirin and non-steroidal medicines like ibuprofen (Motrin, Advil) and naproxen (Aleve, Naprosyn). Talk to your doctor if you think this may apply to you. Acetaminophen (Tylenol)should be safe to use. Follow Up with your doctor, or as advised by our staff. Always bring all of your current medicines with you for your doctor to see. If you do not already have one, talk to your doctor about developing a personalized "Asthma Action Plan." [NOTE: A pneumococcal vaccine and yearly flu shot (every fall) are recommended. Ask your doctor about this.] Get Prompt Medical Attention if any of the following occur: Increased wheezing or shortness of breath Need to use your inhalers more often than usual without relief Fever of 100.4F (38C) or higher, or as directed by your healthcare provider Coughing up lots of dark-colored or bloody sputum (mucus) Chest pain with each breath You do not start to improve within 24 hours Call 911 If Any Of The Following Occur : Trouble walking or talking because of shortness of breath If you use a peak flow meter andyou are still in the red zone (less than 50 percent) 15 minutes after using inhaler medication Lips or fingernails turning kelsey or blue Prednisone Oral tablet What is this medicine? PREDNISONE (PRED ni sone) is a corticosteroid. It is commonly used to treat inflammation of the skin, joints, lungs, and other organs. Common conditions treated include asthma, allergies, and arthritis. It is also used for other conditions, such as blood disorders and diseases of the adrenal glands. How should I use this medicine? Take this medicine by mouth with a glass of water. Follow the directions on the prescription label. Take this medicine with food. If you are taking this medicine once a day, take it in the morning. Do not take more medicine than you are told to take. Do not suddenly stop taking your medicine because you may develop a severe reaction. Your doctor will tell you how much medicine to take. If your doctor wants you to stop the medicine, the dose may be slowly lowered over time to avoid any side effects. Talk to your outside dealer sales representative regarding the use of this medicine in children. Special care may be needed. What side effects may I notice from receiving this medicine? Side effects that you should report to your doctor or health coronary care unit nurse as soon as possible: allergic reactions like skin rash, itching or hives, swelling of the face, lips, or tongue changes in emotions or moods changes in vision depressed mood eye pain fever or chills, cough, sore throat, pain or difficulty passing urine increased thirst swelling of ankles, feet Side effects that usually do not require medical attention (report to your doctor or health coronary care unit nurse if they continue or are bothersome): confusion, excitement, restlessness headache nausea, vomiting skin problems, acne, thin and shiny skin trouble sleeping weight gain What may interact with this medicine? Do not take this medicine with any of the following medications: metyrapone mifepristone This medicine may also interact with the following medications: aminoglutethimide amphotericin B aspirin and aspirin-like medicines barbiturates certain medicines for diabetes, like glipizide or glyburide cholestyramine cholinesterase inhibitors cyclosporine digoxin diuretics ephedrine female hormones, like estrogens and control pills isoniazid ketoconazole NSAIDS, medicines for pain and inflammation, like ibuprofen or naproxen phenytoin rifampin toxoids vaccines warfarin What if I miss a dose? If you miss a dose, take it as soon as you can. If it is almost time for your next dose, talk to your doctor or health coronary care unit nurse. You may need to miss a dose or take an extra dose. Do not take double or extra doses without advice. Where should I keep my medicine? Keep out of the reach of children. Store at room temperature between 15 and 30 degrees C (59 and 86 degrees F). Protect from light. Keep container tightly closed. Throw away any unused medicine after the expiration date. What should I tell my health care provider before I take this medicine? They need to know if you have any of these conditions: [place]'s syndrome diabetes glaucoma heart disease high blood pressure infection (especially a virus infection such as chickenpox, cold sores, or herpes) kidney disease liver disease mental illness myasthenia gravis osteoporosis seizures stomach or intestine problems thyroid disease an unusual or allergic reaction to lactose, prednisone, other medicines, foods, dyes, or preservatives or trying to get breast-feeding What should I watch for while using this medicine? Visit your doctor or health coronary care unit nurse for regular checks on your progress. If you are taking this medicine over a prolonged period, carry an identification card with your name and address, the type and dose of your medicine, and your doctor's name and address. This medicine may increase your risk of getting an infection. Tell your doctor or health coronary care unit nurse if you are around anyone with measles or chickenpox, or if you develop sores or blisters that do not heal properly. If you are going to have surgery, tell your doctor or health coronary care unit nurse that you have taken this medicine within the last twelve months. Ask your doctor or health coronary care unit nurse about your diet. You may need to lower the amount of salt you eat. This medicine may affect blood sugar levels. If you have diabetes, check with your doctor or health coronary care unit nurse before you change your diet or the dose of your diabetic medicine. You have been given the following additional information: Asthma, Acute (Adult) Prednisone Oral tablet Do not work tomorrow. (Electronically signed by Luigi Schulte MD 03/15/2017 20:59)
--- NOTE | 2017-03-15 20:59 | ED MED RECONCILIATION SUMMARY ---
Patient: TE WEI Medication Reconciliation Report [facility] VisitID: [id number] [address] [place] [address] 21y, M Registration Date/Time: 03/11/2017 Weight: 108.8 kg Height/Length: 72 in. BMI: 32.6 ALLERGIES: Other antibiotic pt. does not recall, Sulfa Antibiotics The patient's Home Medications are listed below: CONTINUE TAKING THE FOLLOWING MEDICATIONS: Albuterol Sulfate Inhalation The source(s) of the original Home Medication information: Not obtained. The following Medications were given to the patient in the Emergency Department: None. The following Medications were prescribed to the patient: Prednisone 20 mg: take 3 orally every day for 5 days. Dispense fifteen (15). No refills. -- Luigi Schulte MD
--- NOTE | 2017-03-15 20:59 | ED DISCHARGE INSTRUCTIONS ---
Patient: TE WEI General Instructions [facility] VisitID: [id number] [place] [address] 21y, M Registration Date/Time: 03/11/2017 Asthma with an acute exacerbation. INSTRUCTIONS Do not work tomorrow. Avoid tobacco smoke. Warnings: Further evaluation is necessary. GENERAL WARNINGS: Return or contact your physician immediately if your condition worsens or changes unexpectedly, if not improving as expected, or if other problems arise. Your Current Medications: CONTINUE TAKING THE FOLLOWING MEDICATIONS: Albuterol Sulfate Inhalation. Prescription Medications: Prednisone 20 mg: take 3 orally every day for 5 days. Dispense fifteen (15). No refills. Follow-up: Follow up with your doctor in five days. Call for an appointment. Understanding of the discharge instructions verbalized by patient and parent. ADDITIONAL INFORMATION Asthma [Adult] Asthma is a disease where the small air passages within the lung go into spasm and restrict the flow of air. Inflammation and swelling of the airways cause further restriction. During an acute asthma attack, these factors cause difficulty breathing, wheezing, cough and chest tightness. An asthma attack can be triggered by many things. Common triggers include the common cold, bronchitis, pneumonia, irritants such as smoke or pullutants in the air, emotional upset and heavy exercise. Inmany adults with asthma, allergies todust, mold, pollen and animal dander can cause an asthma attack. Skipping doses of daily asthma medicine can also bring on an asthma attack. Asthma can be controlled with proper medicines and decreased exposure to known allergens. Home Care: Take prescribed medicine exactly at the times advised. If you have a hand-held inhaler or aerosol breathing medicine, do not use it more than once every four hours, unless told to do so. (If you need this medicine more than every four hours, you may need to return to the Emergency Room.) If prescribed an antibiotic or prednisone, take all of the medicine even if you are feeling better after a few days. Do not smoke. Avoid being exposed to the smoke of others. Some persons with asthma have worsening of their symptoms when they take aspirin and non-steroidal medicines like ibuprofen (Motrin, Advil) and naproxen (Aleve, Naprosyn). Talk to your doctor if you think this may apply to you. Acetaminophen (Tylenol)should be safe to use. Follow Up with your doctor, or as advised by our staff. Always bring all of your current medicines with you for your doctor to see. If you do not already have one, talk to your doctor about developing a personalized "Asthma Action Plan." [NOTE: A pneumococcal vaccine and yearly flu shot (every fall) are recommended. Ask your doctor about this.] Get Prompt Medical Attention if any of the following occur: Increased wheezing or shortness of breath Need to use your inhalers more often than usual without relief Fever of 100.4F (38C) or higher, or as directed by your healthcare provider Coughing up lots of dark-colored or bloody sputum (mucus) Chest pain with each breath You do not start to improve within 24 hours Call 911 If Any Of The Following Occur : Trouble walking or talking because of shortness of breath If you use a peak flow meter andyou are still in the red zone (less than 50 percent) 15 minutes after using inhaler medication Lips or fingernails turning kelsey or blue Prednisone Oral tablet What is this medicine? PREDNISONE (PRED ni sone) is a corticosteroid. It is commonly used to treat inflammation of the skin, joints, lungs, and other organs. Common conditions treated include asthma, allergies, and arthritis. It is also used for other conditions, such as blood disorders and diseases of the adrenal glands. How should I use this medicine? Take this medicine by mouth with a glass of water. Follow the directions on the prescription label. Take this medicine with food. If you are taking this medicine once a day, take it in the morning. Do not take more medicine than you are told to take. Do not suddenly stop taking your medicine because you may develop a severe reaction. Your doctor will tell you how much medicine to take. If your doctor wants you to stop the medicine, the dose may be slowly lowered over time to avoid any side effects. Talk to your admin secretary regarding the use of this medicine in children. Special care may be needed. What side effects may I notice from receiving this medicine? Side effects that you should report to your doctor or health career development facilitator as soon as possible: allergic reactions like skin rash, itching or hives, swelling of the face, lips, or tongue changes in emotions or moods changes in vision depressed mood eye pain fever or chills, cough, sore throat, pain or difficulty passing urine increased thirst swelling of ankles, feet Side effects that usually do not require medical attention (report to your doctor or health career development facilitator if they continue or are bothersome): confusion, excitement, restlessness headache nausea, vomiting skin problems, acne, thin and shiny skin trouble sleeping weight gain What may interact with this medicine? Do not take this medicine with any of the following medications: metyrapone mifepristone This medicine may also interact with the following medications: aminoglutethimide amphotericin B aspirin and aspirin-like medicines barbiturates certain medicines for diabetes, like glipizide or glyburide cholestyramine cholinesterase inhibitors cyclosporine digoxin diuretics ephedrine female hormones, like estrogens and control pills isoniazid ketoconazole NSAIDS, medicines for pain and inflammation, like ibuprofen or naproxen phenytoin rifampin toxoids vaccines warfarin What if I miss a dose? If you miss a dose, take it as soon as you can. If it is almost time for your next dose, talk to your doctor or health career development facilitator. You may need to miss a dose or take an extra dose. Do not take double or extra doses without advice. Where should I keep my medicine? Keep out of the reach of children. Store at room temperature between 15 and 30 degrees C (59 and 86 degrees F). Protect from light. Keep container tightly closed. Throw away any unused medicine after the expiration date. What should I tell my health care provider before I take this medicine? They need to know if you have any of these conditions: [place]'s syndrome diabetes glaucoma heart disease high blood pressure infection (especially a virus infection such as chickenpox, cold sores, or herpes) kidney disease liver disease mental illness myasthenia gravis osteoporosis seizures stomach or intestine problems thyroid disease an unusual or allergic reaction to lactose, prednisone, other medicines, foods, dyes, or preservatives or trying to get breast-feeding What should I watch for while using this medicine? Visit your doctor or health career development facilitator for regular checks on your progress. If you are taking this medicine over a prolonged period, carry an identification card with your name and address, the type and dose of your medicine, and your doctor's name and address. This medicine may increase your risk of getting an infection. Tell your doctor or health career development facilitator if you are around anyone with measles or chickenpox, or if you develop sores or blisters that do not heal properly. If you are going to have surgery, tell your doctor or health career development facilitator that you have taken this medicine within the last twelve months. Ask your doctor or health career development facilitator about your diet. You may need to lower the amount of salt you eat. This medicine may affect blood sugar levels. If you have diabetes, check with your doctor or health career development facilitator before you change your diet or the dose of your diabetic medicine. You have been given the following additional information: Asthma, Acute (Adult) Prednisone Oral tablet Do not work tomorrow. (Electronically signed by Luigi Schulte MD 03/15/2017 20:59)
--- NOTE | 2017-03-15 20:59 | ED MAR SUMMARY ---
..... Medication Administration Record [facility] [address] [place], [place] [id number] Patient: TE WEI Visit ID: [id number] 21y, M Weight: 108.8 kg Height/Length: 72 in BMI: 32.6 ALLERGIES: Other antibiotic pt. does not recall, Sulfa Antibiotics
--- NOTE | 2017-03-15 20:59 | ED MED RECONCILIATION SUMMARY ---
Patient: TE WEI Medication Reconciliation Report [facility] VisitID: [id number] [address] [place] [address] 21y, M Registration Date/Time: 03/11/2017 Weight: 108.8 kg Height/Length: 72 in. BMI: 32.6 ALLERGIES: Other antibiotic pt. does not recall, Sulfa Antibiotics The patient's Home Medications are listed below: CONTINUE TAKING THE FOLLOWING MEDICATIONS: Albuterol Sulfate Inhalation The source(s) of the original Home Medication information: Not obtained. The following Medications were given to the patient in the Emergency Department: None. The following Medications were prescribed to the patient: Prednisone 20 mg: take 3 orally every day for 5 days. Dispense fifteen (15). No refills. -- Luigi Schulte MD
--- NOTE | 2017-03-15 20:59 | ED MAR SUMMARY ---
..... Medication Administration Record [facility] [address], [place] [id number] Patient: TE WEI Visit ID: [id number] 21y, M Weight: 108.8 kg Height/Length: 72 in BMI: 32.6 ALLERGIES: Other antibiotic pt. does not recall, Sulfa Antibiotics
== END 2017-03-11 20:45 | disposition home or self-care (01) ==
LOC: ED SRH 19:43
DX: J45.901 Unspecified asthma with (acute) exacerbation (principal); Z79.51 Long term (current) use of inhaled steroids; Z88.2 Allergy status to sulfonamides